=== PATIENT | male | born 1975 | race Caucasian/White ===

== ENCOUNTER → 2017-08-02 09:56 | Outpatient (CLI) | payer MEDICAID | END | disposition home or self-care (01) | LOC: D.MRI 07-25 08:30 | DX: M25.532 Pain in left wrist (principal) ==

== ENCOUNTER → 2020-09-25 09:06 | Day surgery (SDC) | payer MEDICAID ==
[~2020-09-25] VITALS: Ht 165.1 cm; Wt 82.6 kg
[~2020-09-25 09:06] MED LIST: HYDROCODON-ACE1 EA10 PO; LISINOPRIL20 MG PO; NAPROSYN500 MG PO; PEPCID40 MG PO
[2020-09-25 10:41] LABS: ANION GAP 11.4 mmol/L (8-16); CALCIUM 9.7 mg/dL (8.5-10.1); CARBON DIOXIDE 29.3 mmol/L (21.0-32.0); CREATININE - SERUM 1.5 mg/dL (0.6-1.3); POTASSIUM - SERUM 4.7 mmol/L (3.5-5.1)
[2020-09-25 11:06] LABS: BASOPHILS 0.4 % (0-2); HEMATOCRIT 46.5 % (42.0-54.0); HEMOGLOBIN 15.8 g/dL (13.5-17.5); IMMATURE GRANULOCYTES 0.3 % (0-5); LYMPHOCYTES 22.2 % (15-50); MCH 31.1 pg (26.0-34.0); MCV 91.5 fL (80.0-100.0); MEAN PLATELET VOLUME 9.5 fL (7.4-10.4); MONOCYTES 11.2 % (2-11); NEUTROPHIL ABS# 4.12 10x3/uL (1.78-5.38); NEUTROPHILS 60.9 % (40-80); PLATELET COUNT 228 10x3/uL (130-400); RBC 5.08 10x6/uL (4.20-6.10); RDW 12.8 % (11.5-14.5); WBC 6.8 10x3/uL (4.8-10.8)
== END | disposition home or self-care (01) ==
LOC: D.OPS 09:06
PROVIDERS: Anesthesiology; ATTEND Neurological Surgery
DX: M53.82 Other specified dorsopathies, cervical region (principal)

== ENCOUNTER 2020-09-30 06:07 | Inpatient (IN) | payer MEDICAID ==
[2020-09-30] VITALS (10 sets, daily range): BP systolic 120–186; BP diastolic 45–131; Ht 165.1 cm; Wt 80.3 kg
[~2020-09-30] VITALS: Ht 165.1 cm; Wt 80.3 kg
--- NOTE | ~2020-09-30 | OP ---
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 PROCEDURE: Anterior cervical discectomy and fusion at C5-C6 and C6-C7 with removal of osteophytes, PEEK interbody cages at C5-C6 and C6-C7 with Shruthi bone allograft, a separate anterior cervical plate and screws at C5-C6 and C6-C7. SURGEON: SURGEON: Mar Mckeon MD DESCRIPTION OF TECHNIQUE: After induction of general endotracheal anesthesia, the patient was positioned supine on the operating table. Neck was prepped and draped in the usual sterile fashion. Fluoroscopic x-ray and a freer localized the C5-C6 interspace. A transverse skin incision was carried out from the midline to the sternocleidomastoid muscle. After infiltration of 1:100,000 epinephrine with 1% lidocaine, the platysma was divided with a sharp dissection using a Metzenbaum scissors. I proceeded in avascular plane medial to the carotid sheath. The C5-C6 interspace was identified with a fluoroscopic x-ray and spinal needle. The longus colli muscles were elevated from the bodies of C5, C6 and C7. The [place] distracting pins were placed by the C5, C6 and C7. A self-retaining retractor was placed deep to the longus colli muscles. Each interspace was incised with a #11 blade. The disk material was removed with pituitary rongeurs and curettes. The posterior longitudinal ligament was removed with Cloward rongeurs. Osteophytes were drilled away posteriorly in both foramina with a Midas Gilson drill and microscopic illumination. Following this, the dura was decompressed well in the foramen as well as the central dura. A PEEK interbody cage was placed in each disc space under distraction. Prior to this, each cage was filled with Shruthi bone allograft. Next, a separate anterior cervical plate and screws was placed from C5 to C7. Self-drilling screws were placed in the holes in the plate at C5, C6 and C7. Locking cams were tightened down over the screw heads. Good position of the hardware was confirmed with fluoroscopic x-ray. A 4-0 Vicryl sutures were used to reapproximate the platysma and subdermal layer at the incision. The skin was reapproximated with Steri-Strips and benzoin. A sterile dressing was applied to the wound. The patient was awakened in good condition and taken to recovery. All counts were reported as correct. ESTIMATED BLOOD LOSS: Minimal. TRANSINT:[id number] Voice Confirmation ID: [id number] DOCUMENT ID: [id number] OPERATIVE REPORT [id number] LALI CARD JOHN MD CC: [id number] DICTATION DATE: 10/19/20935 [employer] ANALYST: 10/19/20 1033 DIS IN 10/01/20 [facility] [address] [place] [address]
[2020-10-01] VITALS (8 sets, daily range): BP systolic 112–157; BP diastolic 61–99
--- NOTE | 2020-10-01 06:14 | NUR ---
Paged Dr. Mckeon about high systolic and diastolic bp. Ordered 20 mg lasix and labetalol 100mg po. Since then the patient's bp has greatly improved. Patient only experienced one episode of major pain.
[2020-10-01] MEDS ORDERED: MEDROL DOSE PACK4 MG PO (08:41)
[2020-10-01] MEDS ORDERED: HYDROCODON-ACE1 EA10 PO (08:42)
== END 2020-10-01 12:51 | disposition home or self-care (01) | DRG 473 ==
LOC: D.OPS 06:07 → D.ICU 14:58
PROVIDERS: ADMIT Neurological Surgery; ATTEND Neurological Surgery
PROC: 0RG20A0 Fusion of 2 or more Cervical Vertebral Joints with Interbody Fusion Device, Anterior Approach, Anterior Column, Open Approach (ICD-10-PCS; 2020-09-30)
PROC: 0RG20K0 Fusion of 2 or more Cervical Vertebral Joints with Nonautologous Tissue Substitute, Anterior Approach, Anterior Column, Open Approach (ICD-10-PCS; 2020-09-30)
PROC: 0RB30ZZ Excision of Cervical Vertebral Disc, Open Approach (ICD-10-PCS; principal; 2020-09-30 08:30)
DX: M50.122 Cervical disc disorder at C5-C6 level with radiculopathy (principal)

== ENCOUNTER → 2020-10-27 15:20 | Outpatient (CLI) | payer MEDICAID ==
[2020-09-30 15:33] VITALS: BMI 31.1
[~2020-10-27 15:20] MED LIST changes: +MEDROL DOSE PACK4 MG PO
[2020-10-27 16:01] LABS: BASOPHILS 0.4 % (0-2); EOSINOPHILS 5.4 % (0-7); HEMATOCRIT 41.6 % (42.0-54.0); HEMOGLOBIN 14.1 g/dL (13.5-17.5); IMMATURE GRANULOCYTES 0.1 % (0-5); LYMPHOCYTE ABS# 1.76 10x3/uL (1.32-3.57); LYMPHOCYTES 22.2 % (15-50); MCH 31.2 pg (26.0-34.0); MCHC 33.9 g/dL (31.0-37.0); MEAN PLATELET VOLUME 10.6 fL (7.4-10.4); MONOCYTES 7.6 % (2-11); NEUTROPHIL ABS# 5.11 10x3/uL (1.78-5.38); NEUTROPHILS 64.3 % (40-80); RBC 4.52 10x6/uL (4.20-6.10); WBC 7.9 10x3/uL (4.8-10.8)
[2020-10-27 16:10] LABS: PLATELET COUNT 280 10x3/uL (130-400)
[2020-10-27 16:11] LABS: CALC OSMOLALITY 287 mosm/kg (275-300); CALCIUM 8.7 mg/dL (8.5-10.1); CARBON DIOXIDE 28.6 mmol/L (21.0-32.0); CHLORIDE - SERUM 109 mmol/L (98-107); GLUCOSE 73 mg/dL (74-106); POTASSIUM - SERUM 4.5 mmol/L (3.5-5.1); SODIUM 145 mmol/L (136-145); UREA NITROGEN 13 mg/dL (7-18); eGFR NON AFRICAN AMERICAN 86 mL/min (90-120)
[2020-10-27 17:03] LABS: ERYTHROCYTE SEDIMENTATION RATE 17 mm/hr (0-15)
== END | disposition home or self-care (01) ==
LOC: D.LABREF 15:20
PROVIDERS: ATTEND Orthopaedic Surgery
DX: M70.52 Other bursitis of knee, left knee (principal)

== ENCOUNTER → 2020-10-30 09:18 | Outpatient (CLI) | payer MEDICAID ==
[2020-09-30 15:33] VITALS: BMI 31.1
== END | disposition home or self-care (01) ==
LOC: D.MRI 09:00
PROVIDERS: ATTEND Orthopaedic Surgery
DX: M71.162 Other infective bursitis, left knee (principal)

== ENCOUNTER → 2020-12-14 10:28 | Day surgery (SDC) | payer MEDICAID ==
[~2020-12-14] VITALS: Ht 165.1 cm; Wt 79.5 kg
[~2020-12-14 10:28] MED LIST changes: +GABAPENTIN300 MG PO
[2020-12-14 11:31] VITALS: BP 119/72; Ht 165.1 cm; Wt 79.5 kg
[2020-12-14 12:25] LABS: BASOPHILS 0.8 % (0-2); EOSINOPHILS 4.3 % (0-7); HEMATOCRIT 42.5 % (42.0-54.0); HEMOGLOBIN 14.6 g/dL (13.5-17.5); LYMPHOCYTES 19.3 % (15-50); MCH 31.1 pg (26.0-34.0); MCHC 34.3 g/dL (31.0-37.0); MCV 90.7 fL (80.0-100.0); MEAN PLATELET VOLUME 7.4 fL (7.4-10.4); MONOCYTES 8.8 % (2-11); NEUTROPHILS 66.8 % (40-80); PLATELET COUNT 232 10x3/uL (130-400); RBC 4.68 10x6/uL (4.20-6.10); RDW 13.5 % (11.5-14.5); WBC 10.2 10x3/uL (4.8-10.8)
[2020-12-14 12:31] LABS: CALC OSMOLALITY 286 mosm/kg (275-300); CALCIUM 9.3 mg/dL (8.5-10.1); CARBON DIOXIDE 30.1 mmol/L (21.0-32.0); CHLORIDE - SERUM 107 mmol/L (98-107); GLUCOSE 102 mg/dL (74-106); POTASSIUM - SERUM 4.2 mmol/L (3.5-5.1); SODIUM 144 mmol/L (136-145); UREA NITROGEN 12 mg/dL (7-18); eGFR NON AFRICAN AMERICAN 86 mL/min (90-120)
--- NOTE | 2020-12-14 14:22 | NUR ---
PATIENT REMAINS IN ROOM AWAITING SURGERY. BECAME VERY AGITATED. CURSING AT STAFF, ANGRY THAT HE HAS BEEN WITHOUT FOOD, CIGARETTES AND PAIN MEDICINE. THIS NURSE EXPLAINED THAT SOMETIMES SURGERIES TAKE LONGER THAN EXPECTED. PATIENT CURSING REGARDING HOSPITAL, SURGEON, ETC. INFORMED THAT SURGEON WAS "CLOSING" 141 SURGERY CALLED AND STATED PROBABLY 45-1 HOUR WAIT DUE TO TURNING ROOM OVER. ATTEMPTED TO INFORM PATIENT. PATIENT STATED HE WAS LEAVING. IV REMOVED W CATH INTACT
== END | disposition home or self-care (01) ==
LOC: D.OPS 10:28
PROVIDERS: Anesthesiology; ATTEND Orthopaedic Surgery
DX: M71.162 Other infective bursitis, left knee (principal); M25.562 Pain in left knee; I10 Essential (primary) hypertension; Z53.20 Procedure and treatment not carried out because of patient's decision for unspecified reasons